=== PATIENT | female | born 1935 | race Hispanic/Latino ===

== ENCOUNTER → 2021-07-09 | Outpatient (CLI) | payer MEDICARE | END | disposition home or self-care (01) | LOC: SHCH 10:31 | PROVIDERS: ATTEND Internal Medicine Cardiovascular Disease | DX: I87.2 Venous insufficiency (chronic) (peripheral) (principal); K21.9 Gastro-esophageal reflux disease without esophagitis; I51.7 Cardiomegaly; R60.9 Edema, unspecified | CPT/HCPCS: 93306; 93970 ==

== ENCOUNTER → 2022-04-20 | Outpatient (CLI) | payer MEDICARE ==
[~2022-04-20] MED LIST: IOHEXOL 350 MG/ML 100ML INFUS..BTL IV ONE
== END | disposition home or self-care (01) ==
LOC: RAH 11:13
PROVIDERS: ATTEND Student in an Organized Health Care Education/Training Program
DX: D48.7 Neoplasm of uncertain behavior of other specified sites (principal); K57.90 Diverticulosis of intestine, part unspecified, without perforation or abscess without bleeding; I25.10 Atherosclerotic heart disease of native coronary artery without angina pectoris
CPT/HCPCS: 72193; Q9967

== ENCOUNTER 2022-05-10 07:26 | Observation (INO) | payer MEDICARE ==
[2022-05-06 13:11] VITALS: BP 163/67
[2022-05-06 13:12] LABS: APPEARANCE,URINE CLOUDY (CLEAR); BILIRUBIN,URINE NEGATIVE (NEGATIVE); COLOR,URINE YELLOW (YELLOW); GLUCOSE, URINE (UA) NEGATIVE (NEGATIVE); KETONES,URINE NEGATIVE (NEGATIVE); LEUKOCYTE ESTERASE ,URINE NEGATIVE Leu/uL (NEGATIVE); NITRATE,URINE NEGATIVE (NEGATIVE); OCCULT BLOOD,URINE NEGATIVE (NEGATIVE); PH,URINE 5.5 (5.0-8.0); PROTEIN,URINE 10 mg/dL (NEGATIVE); UROBILINOGEN,URINE 0.2 mg/dL (0.2-1.0)
[2022-05-06 13:14] LABS: BASOPHILS % (AUTO) 0.4 % (0.0-5.0); EOSINOPHILS % (AUTO) 3.4 % (0.0-8.0); HEMATOCRIT 35.6 % (36-48); LYMPHOCYTES % (AUTO) 17.8 % (21.0-51.0); MEAN CORPUSCULAR HEMOGLOBIN 30.4 pg (27.0-33.0); MEAN CORPUSCULAR HGB CONC 32.6 g/dL (32.0-36.0); MEAN CORPUSCULAR VOLUME 93.2 fL (79-99); MONOCYTES % (AUTO) 10.2 % (3.0-13.0); NEUTROPHILS % (AUTO) 67.9 % (40.0-77.0); PLATELET COUNT (AUTO) 225 K/uL (130-400); RED BLOOD CELL COUNT(AUTO) 3.82 MIL/uL (4.00-5.50); RED CELL DISTRIBUTION WIDTH 13.8 % (11.0-15.5); WHITE BLOOD COUNT (AUTO) 7.7 K/uL (4.8-10.8)
[2022-05-06 13:21] LABS: CALCIUM OXALATE CRYSTALS,UR MOD /LPF (None Seen); MUCUS,URINE RARE LPF (None Seen); RBC,URINE 0-1 /HPF (0-1); TRANSITIONAL EPI CELLS,URINE RARE /HPF (None Seen)
[2022-05-06 13:25] LABS: INR 1.03 (0.85-1.15); PROTHROMBIN TIME 11.2 SEC (9.6-11.6)
[2022-05-06 13:26] LABS: PARTIAL THROMBOPLASTIN TIME 27.1 SEC (26.3-35.5)
[~2022-05-10] VITALS: Ht 139.7 cm; Wt 49.9 kg
[2022-05-10] VITALS (23 sets, daily range): BP systolic 102–146; BP diastolic 53–69
[~2022-05-10 07:26] MED LIST changes: +AEC81 PO; +AMLO-258 PO; +ATOR10 PO; +FENO54TA6 PO; +FERR325T22 PO; +GEMF600T89 PO; +HYDR-4153 PO; -IOHEXOL 350 MG/ML 100ML INFUS..BTL IV ONE; +ISOS60TA77 PO; +LOSA50TA64 PO; +METO-408 PO; +OMEP20CA12 PO; +VITAMIN B12 PO; +VITAMIN D3 PO
[2022-05-10] MEDS ORDERED: LACTATED RINGERS 1000ML 1,000 ML IV ONE (07:56)
[2022-05-10] MEDS ORDERED: PHENYLEPHRINE HCL 10 MG/ML 1ML VIAL IV ONE (08:10)
[2022-05-10 08:32] LABS: CREATININE 0.9 mg/dL (0.5-1.5); POTASSIUM 3.8 mmol/L (3.5-5.1)
[2022-05-10] MEDS ORDERED: BUPIVACAINE/PF 0.25% 10ML VIAL IJ ONE (08:36)
[2022-05-10] MEDS: CEFAZOLIN SODIUM 2 GM VIAL IVPB PRN ×2 (08:55→10:05)
[2022-05-10] MEDS ORDERED: FENTANYL CITRATE PF 50 MCG/1 ML 2ML VIAL ONE (10:01)
[2022-05-10] MEDS ORDERED: MIDAZOLAM HCL 1 MG/ML 2ML VIAL ONE (10:01)
[2022-05-10] MEDS ORDERED: PROPOFOL 10 MG/ML 20ML VIAL IV ONE (10:01)
[2022-05-10] MEDS ORDERED: EPHEDRINE SULFATE 50 MG/ML AMPULE ONE (10:13)
[2022-05-10] MEDS ORDERED: MORPHINE 2 MG SYG ONE (11:15)
[2022-05-10] MEDS ORDERED: NITROGLYCERIN 0.4 MG SL TAB SL ONE (11:16)
[2022-05-10] MEDS ORDERED: NITROGLYCERIN 1GM OINT 1 INCH/1GM TD ONE (11:24)
[2022-05-10 11:39] LABS: ABG BASE EXCESS -3.2 mmol/L (-2.0-3.0); ABG HCO3 21.7 mmol/L (21.0-28.0); ABG OXYGEN SATURATION 99.2 % (95.0-99.0); ABG PCO2 38 mmHg (32-45)
[2022-05-10 13:50] LABS: BASOPHILS % (AUTO) 0.6 % (0.0-5.0); EOSINOPHILS % (AUTO) 3.7 % (0.0-8.0); HEMATOCRIT 31.1 % (36-48); LYMPHOCYTES % (AUTO) 21.3 % (21.0-51.0); MEAN CORPUSCULAR HEMOGLOBIN 30.4 pg (27.0-33.0); MEAN CORPUSCULAR HGB CONC 32.8 g/dL (32.0-36.0); MEAN CORPUSCULAR VOLUME 92.6 fL (79-99); MONOCYTES % (AUTO) 11.8 % (3.0-13.0); NEUTROPHILS % (AUTO) 62.2 % (40.0-77.0); PLATELET COUNT (AUTO) 217 K/uL (130-400); RED BLOOD CELL COUNT(AUTO) 3.36 MIL/uL (4.00-5.50); WHITE BLOOD COUNT (AUTO) 5.3 K/uL (4.8-10.8)
[2022-05-10 14:05] LABS: INR 1.05 (0.85-1.15); PROTHROMBIN TIME 11.4 SEC (9.6-11.6)
[2022-05-10 14:06] LABS: PARTIAL THROMBOPLASTIN TIME 27.9 SEC (26.3-35.5)
[2022-05-10] MEDS: HYDRALAZINE 25MG TABLET PO SCH ×2 (14:34→20:15)
[2022-05-10] MEDS ORDERED: ACETAMINOPHEN 325 MG TAB PO PRN (15:30)
[2022-05-10] MEDS ORDERED: KETOROLAC 15MG/ML VIAL (15MG/ML) IV ONE (20:00)
[2022-05-11 00:09] VITALS: BP 132/67
[2022-05-11 03:09] VITALS: BP 138/63
[2022-05-11 03:52] LABS: BASOPHILS % (AUTO) 0.6 % (0.0-5.0); HEMATOCRIT 29.9 % (36-48); LYMPHOCYTES % (AUTO) 18.3 % (21.0-51.0); MEAN CORPUSCULAR HEMOGLOBIN 30.3 pg (27.0-33.0); MEAN CORPUSCULAR HGB CONC 33.1 g/dL (32.0-36.0); MEAN CORPUSCULAR VOLUME 91.4 fL (79-99); MONOCYTES % (AUTO) 14.8 % (3.0-13.0); NEUTROPHILS % (AUTO) 62.9 % (40.0-77.0); PLATELET COUNT (AUTO) 205 K/uL (130-400); RED BLOOD CELL COUNT(AUTO) 3.27 MIL/uL (4.00-5.50); RED CELL DISTRIBUTION WIDTH 14.1 % (11.0-15.5); WHITE BLOOD COUNT (AUTO) 5.3 K/uL (4.8-10.8)
[2022-05-11 04:05] LABS: CREATININE 0.9 mg/dL (0.5-1.5); POTASSIUM 3.7 mmol/L (3.5-5.1)
[2022-05-11 08:28] VITALS: BP 138/73
[2022-05-11 08:30] LABS: CHOLESTEROL 95 mg/dL (<200); HDL CHOLESTEROL 42 mg/dL (35-85); LDL DIRECT 43 mg/dL (0-99); TRIGLYCERIDES 64 mg/dL (30-200)
[2022-05-11 08:32] LABS: ALBUMIN 2.8 g/dL (3.5-5.0); TOTAL PROTEIN, SERUM 6.2 g/dL (6.0-8.3)
[2022-05-11] MEDS: HYDRALAZINE 25MG TABLET PO SCH (08:40)
[2022-05-11] MEDS ORDERED: METOPROLOL SUCCINATE 25 MG TAB.SR.24H PO SCH (09:00)
[2022-05-11] MEDS ORDERED: ISOSORBIDE MONO 60MG SR TAB PO SCH (09:00)
[2022-05-11] MEDS ORDERED: ATORVASTATIN 10 MG TABLET PO SCH (09:00)
[2022-05-11] MEDS ORDERED: LOSARTAN 50 MG TABLET PO SCH (09:00)
[2022-05-11] MEDS ORDERED: AMLODIPINE 5 MG TAB PO SCH (09:00)
[2022-05-11] MEDS ORDERED: FERROUS SULFATE 325 MG TABLET.DR PO SCH (09:00)
[2022-05-11] MEDS ORDERED: ASPIRIN 81 MG EC TAB PO SCH (09:00)
[2022-05-11] MEDS ORDERED: FAMOTIDINE 20MG VIAL IV SCH (09:00)
[2022-05-11 11:42] VITALS: BP 134/64
== END 2022-05-11 15:36 | disposition home or self-care (01) ==
LOC: DAH 07:26 → INTOOBSV 07:27 → DAHIP 07:27 → 2AH 13:13
PROVIDERS: ADMIT Hospitalist; ATTEND Hospitalist
DX: L02.33 Carbuncle of buttock (principal); Z20.822 Contact with and (suspected) exposure to COVID-19; D48.7 Neoplasm of uncertain behavior of other specified sites; R07.89 Other chest pain; I10 Essential (primary) hypertension; I25.110 Atherosclerotic heart disease of native coronary artery with unstable angina pectoris; I25.700 Atherosclerosis of coronary artery bypass graft(s), unspecified, with unstable angina pectoris; I35.0 Nonrheumatic aortic (valve) stenosis; I87.2 Venous insufficiency (chronic) (peripheral); E78.5 Hyperlipidemia, unspecified; Z79.899 Other long term (current) drug therapy; Z98.890 Other specified postprocedural states; Z95.1 Presence of aortocoronary bypass graft
CPT/HCPCS: 85025 ×3; 85610 ×2; 85730 ×2; 87426; 81001; 36415 ×3; 71045 ×2; 93005 ×2; 21931; 96374; 82435; 82550; 82947; 83874; 84484; 84132; 84295; 80048 ×2; 82803; 85018; 83605; 88305; 93306; 36600; 96375; 82040; 84155; 80061; A4663; A4452; J7120; J3010; J3490 ×3; J2250; J2704; J1885; J2370; J0690; G0168; A4215; A4223; A4222; A4221; G0378

== ENCOUNTER → 2022-06-16 | Outpatient (CLI) | payer MEDICARE ==
[2022-06-16 16:41] LABS: CHOLESTEROL 151 mg/dL (<200); HDL CHOLESTEROL 54 mg/dL (35-85); LDL DIRECT 81 mg/dL (0-99); TRIGLYCERIDES 102 mg/dL (30-200)
== END | disposition home or self-care (01) ==
LOC: LAB 10:00
PROVIDERS: ATTEND Internal Medicine Cardiovascular Disease
DX: I10 Essential (primary) hypertension (principal); E78.5 Hyperlipidemia, unspecified; R07.9 Chest pain, unspecified
CPT/HCPCS: 36415; 80061; 83880

== ENCOUNTER 2022-11-02 19:03 | Inpatient (IN) | payer OTHER, MEDICARE ==
[~2022-11-02] VITALS: Ht 137.2 cm; Wt 50.6 kg
[2022-11-02 22:54] LABS: APPEARANCE,URINE CLEAR (CLEAR); BILIRUBIN,URINE NEGATIVE (NEGATIVE); COLOR,URINE YELLOW (YELLOW); GLUCOSE, URINE (UA) NEGATIVE (NEGATIVE); KETONES,URINE NEGATIVE (NEGATIVE); LEUKOCYTE ESTERASE ,URINE 25 Leu/uL (NEGATIVE); NITRATE,URINE NEGATIVE (NEGATIVE); OCCULT BLOOD,URINE NEGATIVE (NEGATIVE); PH,URINE 5.5 (5.0-8.0); PROTEIN,URINE 10 mg/dL (NEGATIVE); UROBILINOGEN,URINE 3 mg/dL (0.2-1.0)
[2022-11-02 22:56] LABS: ADD UA MICROSCOPIC YES
[2022-11-02 22:58] LABS: MUCUS,URINE RARE LPF (None Seen); RBC,URINE 0-1 /HPF (0-1); SQUAMOUS EPITHELIAL CELL,UR RARE /HPF (0-2)
[2022-11-03] MEDS ORDERED: 0.9%NACL 1000ML 1,000 ML IV ONE (01:30)
[2022-11-03] MEDS ORDERED: MORPHINE 2 MG SYG IVP ONE (01:30)
[2022-11-03] MEDS ORDERED: CEFTRIAXONE 2GM VIAL IVPB ONE (01:30)
[2022-11-03 02:00] LABS: BASOPHILS # (AUTO) 0.04 K/uL (0.00-0.20); BASOPHILS % (AUTO) 0.4 % (0.0-5.0); EOSINOPHILS # (AUTO) 0.19 K/uL (0.00-0.70); EOSINOPHILS % (AUTO) 1.9 % (0.0-8.0); HEMATOCRIT 31.8 % (36-48); IMMATURE GRANULOCYTE ABSOLUTE 0.04 K/uL (0-1); LYMPHOCYTES # (AUTO) 1.2 K/uL (1.0-4.8); LYMPHOCYTES % (AUTO) 12.1 % (21.0-51.0); MEAN CORPUSCULAR HGB CONC 33.6 g/dL (32.0-36.0); MEAN CORPUSCULAR VOLUME 92.2 fL (79-99); MONOCYTES # (AUTO) 1.3 K/uL (0.1-1.0); MONOCYTES % (AUTO) 12.9 % (3.0-13.0); NEUTROPHILS # (AUTO) 7.2 K/uL (1.8-7.7); NEUTROPHILS % (AUTO) 72.3 % (40.0-77.0); PLATELET COUNT (AUTO) 234 K/uL (130-400); RED BLOOD CELL COUNT(AUTO) 3.45 MIL/uL (4.00-5.50); RED CELL DISTRIBUTION WIDTH 12.4 % (11.0-15.5); WHITE BLOOD COUNT (AUTO) 9.9 K/uL (4.8-10.8)
[2022-11-03 02:08] LABS: CREATININE 1.1 mg/dL (0.5-1.5); POTASSIUM 4.5 mmol/L (3.5-5.1)
[2022-11-03] MEDS ORDERED: ONDANSETRON 4MG INJ IV PRN (04:30)
[2022-11-03] MEDS ORDERED: MAGNESIUM 2GM PREMIX 50ML 50 ML IV PRN (04:30)
[2022-11-03] MEDS ORDERED: ACETAMINOPHEN 325 MG TAB PO PRN (04:30)
[2022-11-03] MEDS ORDERED: POTASSIUM CHLORIDE 20MEQ/100ML 100 ML IV PRN (04:30)
[2022-11-03] MEDS ORDERED: MORPHINE 4 MG SYG IV PRN (04:30)
[2022-11-03] MEDS: LACTATED RINGERS 1000ML 1,000 ML IV SCH ×2 (04:30→21:30)
[2022-11-03 05:01] LABS: MAGNESIUM 2.1 mg/dL (1.80-2.40); PHOSPHORUS 4.9 mg/dL (2.5-4.9)
[2022-11-03 05:02] LABS: INR 0.93 (0.85-1.15); PROTHROMBIN TIME 10.5 SEC (9.6-11.6)
[2022-11-03 05:04] LABS: PARTIAL THROMBOPLASTIN TIME 30.8 SEC (26.3-35.5)
[2022-11-03 06:50] LABS: SARS-CoV-2, RNA, NAAT NEGATIVE SARS CoV-2 (NEGATIVE)
[2022-11-03] MEDS: ZOSYN 3.375GM+NS 50ML 50 ML IVPB SCH ×2 (06:50→19:02)
[2022-11-03 08:41] LABS: HEMOGLOBIN A1C 5.6 % (4.0-6.0)
[2022-11-03] MEDS: FAMOTIDINE 20MG VIAL IV SCH (08:44)
[2022-11-03 23:00] VITALS: BP 182/74; PULSE 75; RESP 20
[2022-11-04] VITALS (8 sets, daily range): BP systolic 97–163; BP diastolic 40–71; PULSE 52–62; RESP 16–19; O2SAT 98–100
[2022-11-04] MEDS: ZOSYN 3.375GM+NS 50ML 50 ML IVPB SCH ×2 (05:00→17:05)
[2022-11-04 05:12] LABS: BASOPHILS # (AUTO) 0.04 K/uL (0.00-0.20); BASOPHILS % (AUTO) 0.5 % (0.0-5.0); EOSINOPHILS # (AUTO) 0.05 K/uL (0.00-0.70); EOSINOPHILS % (AUTO) 0.7 % (0.0-8.0); HEMATOCRIT 30.5 % (36-48); IMMATURE GRANULOCYTE ABSOLUTE 0.05 K/uL (0-1); LYMPHOCYTES # (AUTO) 1.2 K/uL (1.0-4.8); LYMPHOCYTES % (AUTO) 15.8 % (21.0-51.0); MEAN CORPUSCULAR HEMOGLOBIN 31.2 pg (27.0-33.0); MEAN CORPUSCULAR HGB CONC 33.1 g/dL (32.0-36.0); MEAN CORPUSCULAR VOLUME 94.1 fL (79-99); MONOCYTES # (AUTO) 0.9 K/uL (0.1-1.0); MONOCYTES % (AUTO) 11.5 % (3.0-13.0); NEUTROPHILS # (AUTO) 5.4 K/uL (1.8-7.7); NEUTROPHILS % (AUTO) 70.8 % (40.0-77.0); PLATELET COUNT (AUTO) 247 K/uL (130-400); RED BLOOD CELL COUNT(AUTO) 3.24 MIL/uL (4.00-5.50); RED CELL DISTRIBUTION WIDTH 12.2 % (11.0-15.5); WHITE BLOOD COUNT (AUTO) 7.6 K/uL (4.8-10.8)
[2022-11-04 05:25] LABS: CREATININE 0.7 mg/dL (0.5-1.5); POTASSIUM 3.9 mmol/L (3.5-5.1)
[2022-11-04] MEDS: FAMOTIDINE 20MG VIAL IV SCH (09:15)
[2022-11-04] MEDS: LACTATED RINGERS 1000ML 1,000 ML IV SCH (17:05)
[2022-11-04] MEDS: HYDRALAZINE 25MG TABLET PO SCH (20:09)
[2022-11-05] VITALS (28 sets, daily range): BP systolic 95–155; BP diastolic 41–68; PULSE 55–73; RESP 13–20; O2SAT 98
[2022-11-05] MEDS: ZOSYN 3.375GM+NS 50ML 50 ML IVPB SCH ×2 (04:38→17:01)
[2022-11-05] MEDS: LACTATED RINGERS 1000ML 1,000 ML IV SCH ×2 (06:24→20:26)
[2022-11-05 06:39] LABS: BASOPHILS # (AUTO) 0.03 K/uL (0.00-0.20); BASOPHILS % (AUTO) 0.4 % (0.0-5.0); EOSINOPHILS # (AUTO) 0.11 K/uL (0.00-0.70); EOSINOPHILS % (AUTO) 1.6 % (0.0-8.0); HEMATOCRIT 32.9 % (36-48); IMMATURE GRANULOCYTE ABSOLUTE 0.06 K/uL (0-1); MEAN CORPUSCULAR HEMOGLOBIN 30.9 pg (27.0-33.0); MEAN CORPUSCULAR HGB CONC 33.1 g/dL (32.0-36.0); MEAN CORPUSCULAR VOLUME 93.2 fL (79-99); MONOCYTES # (AUTO) 0.8 K/uL (0.1-1.0); MONOCYTES % (AUTO) 11.3 % (3.0-13.0); NEUTROPHILS # (AUTO) 5.1 K/uL (1.8-7.7); NEUTROPHILS % (AUTO) 71.8 % (40.0-77.0); PLATELET COUNT (AUTO) 276 K/uL (130-400); RED BLOOD CELL COUNT(AUTO) 3.53 MIL/uL (4.00-5.50); RED CELL DISTRIBUTION WIDTH 12.1 % (11.0-15.5)
[2022-11-05 06:57] LABS: ALBUMIN 2.5 g/dL (3.5-5.0); BILIRUBIN,TOTAL 0.4 mg/dL (0.2-1.0); CREATININE 0.8 mg/dL (0.5-1.5); POTASSIUM 3.6 mmol/L (3.5-5.1); TOTAL PROTEIN, SERUM 6.8 g/dL (6.0-8.3)
[2022-11-05] MEDS: AMLODIPINE 5 MG TAB PO SCH (08:07)
[2022-11-05] MEDS: LOSARTAN 50 MG TABLET PO SCH (08:07)
[2022-11-05] MEDS: ISOSORBIDE MONO 60MG SR TAB PO SCH (08:08)
[2022-11-05] MEDS: FAMOTIDINE 20MG VIAL IV SCH (08:08)
[2022-11-05] MEDS: HYDRALAZINE 25MG TABLET PO SCH ×3 (08:12→20:26)
[2022-11-05] MEDS: METOPROLOL SUCCINATE 25 MG TAB.SR.24H PO SCH (08:13)
[2022-11-05] MEDS ORDERED: NON-FORMULARY MEDICATION 1 EACH (Amlodipine Besylate 10 MG) PO SCH (09:00)
[2022-11-05] MEDS ORDERED: ONDANSETRON 4MG INJ ONE (09:45)
[2022-11-05] MEDS ORDERED: MIDAZOLAM HCL 1 MG/ML 2ML VIAL ONE (09:45)
[2022-11-05] MEDS ORDERED: PROPOFOL 10 MG/ML 20ML VIAL IV ONE (09:45)
[2022-11-05] MEDS ORDERED: DEXAMETHASONE SOD PHOSPHATE 10MG/ML 1ML VIAL ONE (09:45)
[2022-11-05] MEDS ORDERED: LIDOCAINE PF 100MG/5ML (2%) SYRINGE 5ML ONE (09:45)
[2022-11-05] MEDS ORDERED: FENTANYL CITRATE PF 50 MCG/1 ML 2ML VIAL ONE (09:46)
[2022-11-05] MEDS ORDERED: EPHEDRINE SULFATE 50 MG/ML AMPULE ONE (10:13)
[2022-11-05] MEDS ORDERED: MEPERIDINE-PF 25 MG/ML SYG ONE ×2 (10:17→11:00)
[2022-11-05] MEDS ORDERED: KETOROLAC 30MG VIAL (30MG/ML) ONE (10:17)
[2022-11-06 03:53] VITALS: BP 142/71; PULSE 58; RESP 16
[2022-11-06] MEDS: ZOSYN 3.375GM+NS 50ML 50 ML IVPB SCH ×2 (04:37→16:51)
[2022-11-06 05:24] LABS: HEMATOCRIT 29.9 % (36-48); MEAN CORPUSCULAR HGB CONC 33.4 g/dL (32.0-36.0); MEAN CORPUSCULAR VOLUME 92.6 fL (79-99); RED BLOOD CELL COUNT(AUTO) 3.23 MIL/uL (4.00-5.50); RED CELL DISTRIBUTION WIDTH 12.2 % (11.0-15.5); WHITE BLOOD COUNT (AUTO) 5.1 K/uL (4.8-10.8)
[2022-11-06 05:45] LABS: CREATININE 0.8 mg/dL (0.5-1.5); POTASSIUM 3.7 mmol/L (3.5-5.1)
[2022-11-06 08:00] VITALS: BP 147/66; PULSE 62; RESP 18; O2SAT 95
[2022-11-06] MEDS: FAMOTIDINE 20MG VIAL IV SCH (09:01)
[2022-11-06] MEDS: METOPROLOL SUCCINATE 25 MG TAB.SR.24H PO SCH (09:01)
[2022-11-06] MEDS: ISOSORBIDE MONO 60MG SR TAB PO SCH (09:03)
[2022-11-06] MEDS: AMLODIPINE 5 MG TAB PO SCH (09:03)
[2022-11-06] MEDS: LOSARTAN 50 MG TABLET PO SCH (09:03)
[2022-11-06] MEDS: HYDRALAZINE 25MG TABLET PO SCH ×3 (09:04→20:56)
[2022-11-06 12:00] VITALS: BP 128/61; PULSE 59; RESP 18
[2022-11-06] MEDS: MORPHINE 2 MG SYG IV PRN (14:31)
[2022-11-06 16:00] VITALS: BP 138/69; PULSE 57; RESP 18
[2022-11-06] MEDS: LACTATED RINGERS 1000ML 1,000 ML IV SCH (16:52)
[2022-11-06 19:00] VITALS: BP 139/66; PULSE 56; RESP 20
[2022-11-07] VITALS: BP 138/65; PULSE 56; RESP 20
[2022-11-07] MEDS: MORPHINE 2 MG SYG IV PRN (01:38)
[2022-11-07] MEDS: ZOSYN 3.375GM+NS 50ML 50 ML IVPB SCH ×2 (05:00→17:00)
[2022-11-07] MEDS: LACTATED RINGERS 1000ML 1,000 ML IV SCH (08:30)
[2022-11-07] MEDS: HYDRALAZINE 25MG TABLET PO SCH ×3 (09:00→21:00)
[2022-11-07] MEDS: LOSARTAN 50 MG TABLET PO SCH (09:00)
[2022-11-07] MEDS: ISOSORBIDE MONO 60MG SR TAB PO SCH (09:00)
[2022-11-07] MEDS: AMLODIPINE 5 MG TAB PO SCH (09:00)
[2022-11-07] MEDS: FAMOTIDINE 20MG VIAL IV SCH (09:00)
[2022-11-07] MEDS: METOPROLOL SUCCINATE 25 MG TAB.SR.24H PO SCH (09:00)
[2022-11-08] VITALS (8 sets, daily range): BP systolic 128–156; BP diastolic 57–72; PULSE 52–57; RESP 6–18; O2SAT 95–97
[2022-11-08] MEDS: LACTATED RINGERS 1000ML 1,000 ML IV SCH (01:10)
[2022-11-08] MEDS: ZOSYN 3.375GM+NS 50ML 50 ML IVPB SCH (03:39)
[2022-11-08] MEDS: AMLODIPINE 5 MG TAB PO SCH (10:49)
[2022-11-08] MEDS: LOSARTAN 50 MG TABLET PO SCH (10:49)
[2022-11-08] MEDS: METOPROLOL SUCCINATE 25 MG TAB.SR.24H PO SCH (10:49)
[2022-11-08] MEDS: FAMOTIDINE 20MG VIAL IV SCH (10:50)
[2022-11-08] MEDS: ISOSORBIDE MONO 60MG SR TAB PO SCH (10:50)
[2022-11-08] MEDS: HYDRALAZINE 25MG TABLET PO SCH ×3 (10:59→20:08)
[2022-11-08] MEDS: ACETAMINOPHEN 325 MG TAB PO PRN (15:06)
[2022-11-08] MEDS: CEFAZOLIN SODIUM 1 GM VIAL IVPB SCH ×2 (15:40→21:39)
[2022-11-09] MEDS: CEFAZOLIN SODIUM 1 GM VIAL IVPB SCH (04:51)
[2022-11-09] MEDS: ACETAMINOPHEN 325 MG TAB PO PRN (04:56)
[2022-11-09 05:00] VITALS: BP 147/59; PULSE 57; RESP 16
[2022-11-09 08:00] VITALS: BP 159/68; PULSE 53; RESP 16
[2022-11-09 08:35] VITALS: O2SAT 96
[2022-11-09] MEDS: HYDRALAZINE 25MG TABLET PO SCH (10:57)
[2022-11-09] MEDS: FAMOTIDINE 20MG VIAL IV SCH (10:57)
[2022-11-09] MEDS: LOSARTAN 50 MG TABLET PO SCH (10:58)
[2022-11-09] MEDS: ISOSORBIDE MONO 60MG SR TAB PO SCH (10:59)
[2022-11-09] MEDS: AMLODIPINE 5 MG TAB PO SCH (10:59)
[2022-11-09] MEDS: METOPROLOL SUCCINATE 25 MG TAB.SR.24H PO SCH (10:59)
[2022-11-09 12:00] VITALS: BP 150/77; PULSE 58; RESP 18
[2022-11-09 16:00] VITALS: BP 141/66; PULSE 54; RESP 16
== END 2022-11-09 17:30 | disposition home health service (06) | DRG 603 ==
LOC: EDH 19:03 → EDHIP 11-03 04:12 → 3DH 11-03 21:36
PROVIDERS: ADMIT Internal Medicine; ATTEND Internal Medicine
PROC: 0J990ZZ Drainage of Buttock Subcutaneous Tissue and Fascia, Open Approach (ICD-10-PCS; principal; 2022-11-05 17:00)
DX: L02.31 Cutaneous abscess of buttock (principal); N39.0 Urinary tract infection, site not specified; I11.0 Hypertensive heart disease with heart failure; Z20.822 Contact with and (suspected) exposure to COVID-19; E78.5 Hyperlipidemia, unspecified; I50.9 Heart failure, unspecified; D64.9 Anemia, unspecified; I25.10 Atherosclerotic heart disease of native coronary artery without angina pectoris; Z95.1 Presence of aortocoronary bypass graft; Z90.710 Acquired absence of both cervix and uterus; Z79.82 Long term (current) use of aspirin
CPT/HCPCS: 36415; 72192; 76705; 80048; 80053; 81001; 83036; 83735; 84100; 85025; 85027; 85610; 85730; 86850; 86900; 86901; 87070; 87076; 87077; 87186; 87635; 93005; 97039; G0378; J0690; J0696; J1100; J1885; J2001; J2175; J2250; J2270; J2405; J2543; J2704; J3010; J3490; J7030; J7120; A4216; A4222; A4223; A4452; G8980-CI; G8983-CI

== ENCOUNTER → 2023-06-13 | Outpatient (CLI) | payer OTHER, MEDICARE ==
[~2023-06-13] MED LIST changes: -AEC81 PO; -ATOR10 PO; -FENO54TA6 PO; -FERR325T22 PO; -GEMF600T89 PO; -HYDR-4153 PO; +HYDR25TA67 PO; -VITAMIN D3 PO
== END | disposition home or self-care (01) ==
LOC: SHCH 09:15
PROVIDERS: ATTEND Internal Medicine Cardiovascular Disease
DX: I08.0 Rheumatic disorders of both mitral and aortic valves (principal); R06.09 Other forms of dyspnea; E78.5 Hyperlipidemia, unspecified; I11.9 Hypertensive heart disease without heart failure
CPT/HCPCS: 93306

== ENCOUNTER → 2024-01-02 | Outpatient (CLI) | payer OTHER, MEDICARE | END | disposition home or self-care (01) | LOC: SHCH 14:04 | PROVIDERS: ATTEND Internal Medicine Cardiovascular Disease | DX: I35.0 Nonrheumatic aortic (valve) stenosis (principal) | CPT/HCPCS: 93306 ==